=== PATIENT | female | born 1955 | race Asian ===

== ENCOUNTER 2019-07-28 15:31 | Emergency (ER) | payer OTHER ==
[2019-07-28 16:00] VITALS: BP 111/65; PULSE 89; TEMP 97.9; BMI 24.4
--- NOTE | 2019-07-28 16:03 | PDOC ---
Rapid Medical Evaluation Chief Complaint: Pain Time Seen by Provider: 07/28/19 15:52 Medical Evaluation: Allergies Allergy/AdvReac Type Severity Reaction Status Date / Time No Known Allergies Allergy Verified 07/28/19 15:50 07/28/19 15:52 I have performed a brief in-person evaluation of this patient. The patient presents with a chief complaint of: Abdominal and rectal pain w/ blood in urine. Also c/o constipation. Last BM was 3 days ago since skin graft for skin cancer? Pertinent physical exam findings:Pt appears in discomfort from pain I have ordered the following: UA. Ucx, flat and upright abdominal xray The patient will proceed to the ED for further evaluation. Discharge Disposition - Diagnosis Abdominal pain - Referrals - Patient Instructions - Post Discharge Activity
--- NOTE | 2019-07-28 16:43 | PDOC ---
Attending Attestation - Resident Resident Name: RaineyJose martin - HPI HPI: 07/28/19 18:22 Pt presents to the ED complaining of constipation after recent surgery. Patient has a history of melanoma, s/p resection, was discharged from the hospital on oxycodone and miralax. Daugther reports that she has been taking the oxycodone but not the miralax. History of chronic constipation. Patient was also complaining of nausea, vague abdominal discomfort and painless hematuria. Patient took mag citrate and "mineral salt water" at home without success. On arrival to the ED, patient had a large bowel movement. Now, she reports feeling much better, and reports that her abdominal discomfort and nausea are gone. 07/28/19 18:27 - Physicial Exam PE: 07/28/19 18:27 Agree with resident exam. Patient is - Medical Decision Making 07/28/19 18:29 pt presents to the ED complaining of constipation that resolved on arrival to the ED. Also complains of painless hematuria. UA shows no evidence of infection. Will discharge home with instructions to follow up with urology and PCP for urgent cystoscopy/
[2019-07-28 18:21] LABS: EPI CELLS 0.9 /HPF (0-5/HPF); HYALINE CASTS 4 /lpf (0-8); URINE APPEARANCE CLEAR; URINE BACTERIA 1.9 /hpf (NEGATIVE); URINE BILIRUBIN NEGATIVE (NEGATIVE); URINE COLOR YELLOW; URINE GLUCOSE (UA) NEGATIVE (NEGATIVE); URINE KETONE NEGATIVE (NEGATIVE); URINE LEUK ESTERASE NEGATIVE (NEGATIVE); URINE NITRITE NEGATIVE (NEGATIVE); URINE PROTEIN NEGATIVE (NEGATIVE); URINE RBC 169 /hpf (0-4); URINE WBC 3 /hpf (0-5)
--- NOTE | 2019-07-28 18:38 | PDOC ---
History of Present Illness - General Chief Complaint: Pain Stated Complaint: CONSTIPATION Time Seen by Provider: 07/28/19 15:52 History Source: Patient, Family (Daughter arrived at bedside. Pt requested she take over translating from [employer] ([employer]# [id number]) Exam Limitations: Language Barrier - History of Present Illness Initial Comments: HPI: 64 y/o female presenting to [facility] ER complaining of constipation and lower abdominal pain since approx. 9am this morning. Last BM was yesterday; described as small and required straining. Denies observing blood. Denies nausea/ vomiting. Tolerating PO well. Endorses chronic constipation issues. Pt underwent removal of melanoma lesion from right foot last Wednesday. Prescribed Oxycodone and MiraLax. Has "only taken a few" pain pills but has not used the MiraLax. Took Mag Citrate at urging of daughter yesterday with limited success. Pt also reports painless hematuria for the past several days. Denies fevers or chills. Denies h/o of similar. Had urine sample taken at pt's surgical post-op clinic visit but no results obtained. No antibiotics prescribed. During the course of interview, pt had a large BM, which she reported as nonbloody and soft. Social Hx: - Nonsmoker Medical Hx: - HTN Surgical Hx: - x2 Review of Systems: In addition to that documented in the HPI above, the additional ROS was obtained : Constitutional- Denies fevers or chills Head- Denies vision changes ENMT- Denies sore throat CV- Denies chest pain Resp- Denies SOB GI- Denies vomiting or diarrhea - Denies painful urination MSK- Denies recent trauma Skin- Denies new rashes Neuro- Denies new numbness or tingling or weakness Endocrine- Denies polyuria Heme- Denies bleeding or bruising Physical Examination: Constitutional- Well-developed, well-nourished adult female in no acute distress or obvious discomfort. Found semi-fowlers on hospital bed. Answered all questions appropriately and completely. Head- Normocephalic. No obvious external signs of trauma. Cardiovascular / Chest- Regular rate and regular rhythm. No murmur, rubs, clicks , or gallops. Peripheral pulses- radial pulses full. Respiratory- Breathing unlabored. Equal chest rise and fall. Clear to auscultation bilaterally. No stridor, no wheezing, no rhonchi. Gastrointestinal- abdomen is soft, non-tender, non-distended. Recent skin grafting scar in LLQ. Neuro- Alert and oriented x4. Moving all four extremities spontaneously. Skin- Warm, dry, and intact. Psych- Affect- appropriate. Mood- normal. Speech was non-labored, non- pressured. MDM: *Reviewed vital signs, nursing notes, and prior visit documentation (if available). 64 y/o female presenting with constipation and painless hematuria. Afebrile. Vitals unremarkable for hypotension or tachycardia. Physical exam as described above. Pt's constipation and lower abdominal pain resolved with BM without medical intervention. UA revealed hematuria without pyuria, nitrites, or leukocyte esterase. Low suspicion for infection. Will defer further workup to PCP clinic. Discussed importance of close follow up with pt and daughter. Provided copy of results. Answered all questions. Provided return precautions. Pt and daughter expressed verbal understanding and agreement with plan to discharge home. Jose Rainey M.D., PGY2 Emergency Medicine Resident Past History - Past Medical History Allergies/Adverse Reactions: Allergies Allergy/AdvReac Type Severity Reaction Status Date / Time No Known Allergies Allergy Verified 07/28/19 15:50 Cancer: Yes (skin) COPD: No Other medical history: being treated for shingles - Psycho Social/Smoking Cessation Hx Smoking History: Never smoked *Physical Exam - Vital Signs Last Vital Signs Temp Pulse Resp BP Pulse Ox 97.9 F 89 18 111/65 97 07/28/19 15:50 07/28/19 15:50 07/28/19 15:50 07/28/19 15:50 07/28/19 15:50 ED Treatment Course - ADDITIONAL ORDERS Additional order review: Laboratory Results 07/28/19 18:00 Urine Color Yellow Urine Appearance Clear Urine pH 5.0 Ur Specific Ewing 1.023 Urine Protein Negative Urine Glucose (UA) Negative Urine Ketones Negative Urine Blood 3+ H Urine Nitrite Negative Urine Bilirubin Negative Urine Urobilinogen 1.0 Ur Leukocyte Esterase Negative Urine WBC (Auto) 3 Urine RBC (Auto) 169 Urine Casts (Auto) 4 U Epithel Cells (Auto) 0.9 Urine Bacteria (Auto) 1.9 Discharge - Discharge Information Problems reviewed: Yes Clinical Impression/Diagnosis: Abdominal pain Qualifiers: Abdominal location: lower abdomen, unspecified Qualified Code(s): R10.30 - Lower abdominal pain, unspecified Constipation Qualifiers: Constipation type: unspecified constipation type Qualified Code(s): K59.00 - Constipation, unspecified Hematuria Qualifiers: Hematuria type: unspecified type Qualified Code(s): R31.9 - Hematuria, unspecified Condition: Improved Disposition: HOME - Admission No - Follow up/Referral Referrals: Harris Renteria [Primary Care Provider] - - Patient Discharge Instructions Patient Printed Discharge Instructions: DI for Constipation, DI for Prescription Opioid Use Additional Instructions: You were seen today for constipation and blood in urine. Your urine test did not show signs of an infection but did show blood. This is a result you need to discuss with your primary care doctor for further evaluation. The constipation is likely related to your chronic constipation problems and was made worse by taking Oxycodone without taking the MiraLAX. You should start taking this as prescribed by your other doctors. Follow up with your primary care doctor within the next 2-3 days. You will need to call to make an appointment. The number is included in this packet. A copy of todays results are attached to this packet. Take it to the appointment so your doctor can review them. Go to the nearest emergency department if your condition worsens or you feel like you need additional emergency evaluation. Print Language: ECUADOREAN - Post Discharge Activity
== END 2019-07-28 18:46 | disposition home or self-care (01) ==
LOC: JER 15:31
DX: K59.00 Constipation, unspecified (principal); R10.30 Lower abdominal pain, unspecified; I10 Essential (primary) hypertension; R31.9 Hematuria, unspecified; Z85.820 Personal history of malignant melanoma of skin; Z98.890 Other specified postprocedural states
CPT/HCPCS: 81003; 87086; 99282-25

== ENCOUNTER 2021-09-22 09:18 | Emergency (ER) | payer OTHER ==
[2021-09-22 09:56] VITALS: BP 128/61; PULSE 68; TEMP 98.5; BMI 25.7
[2021-09-22] MEDS ORDERED: METOCLOPRAMIDE HCL INJECTION 10 MG/2 ML VIAL IVPUSH ONE (10:14)
[2021-09-22] MEDS ORDERED: ACETAMINOPHEN 1000 MG/100 ML BAG IVPB ONE (10:14)
[2021-09-22] MEDS ORDERED: SODIUM CHLORIDE 0.9% 500 ML INFUS.BAG IV ONE (10:14)
[2021-09-22] MEDS ORDERED: METOCLOPRAMIDE HCL INJECTION 10 MG/2 ML VIAL ONE (10:40)
[2021-09-22] MEDS ORDERED: ACETAMINOPHEN INJECTION 100 ML IVPB ONE (10:40)
[2021-09-22 11:11] LABS: CHLORIDE 107 mmol/L (98-107); SODIUM 139 mmol/L (136-145)
[2021-09-22 11:14] LABS: ANION GAP 2 MMOL/L (8-16); BLOOD UREA NITROGEN 8.7 mg/dL (7-18); CALCIUM 9.1 mg/dL (8.5-10.1); CO2 31 mmol/L (21-32); GLUCOSE,RANDOM 101 mg/dL (74-106)
[2021-09-22 11:15] LABS: ALBUMIN 3.9 g/dl (3.4-5.0)
[2021-09-22 11:17] LABS: SGPT/ALT 29 U/L (13-61)
[2021-09-22 11:18] LABS: CREATININE 0.6 mg/dL (0.55-1.3); SGOT/AST 25 U/L (15-37)
[2021-09-22 11:19] LABS: BILIRUBIN,TOTAL 1.4 mg/dL (0.2-1); TOT PROT 7.6 g/dl (6.4-8.2)
[2021-09-22 11:20] LABS: ALK PHOS 71 U/L (45-117)
[2021-09-22 11:45] LABS: BASO % 1.1 % (0-2.0); EOS % 1.9 % (0-4.5); HEMATOCRIT 40.9 % (32.4-45.2); LYMPH % 31.2 % (8-40); MCH 31.9 pg (25.7-33.7); MCHC 34.2 g/dl (32.0-36.0); MEAN CELL VOLUME 93.1 fl (80-96); MEAN PLT VOLUME 8.6 fl (7.5-11.1); MONO % 5.6 % (3.8-10.2); NEUT % 60.2 % (42.8-82.8); PLATELET COUNT 199 10^3/uL (134-434); RBC 4.39 M/mm3 (3.60-5.2); RDW 13.3 % (11.6-15.6); WHITE BLOOD COUNT 3.8 K/mm3 (4.0-10.0)
== END 2021-09-22 12:35 | disposition home or self-care (01) ==
LOC: JER 09:18
PROC: 3E0333Z Introduction of Anti-inflammatory into Peripheral Vein, Percutaneous Approach (ICD-10-PCS; principal; 2021-09-22)
PROC: 3E033GC Introduction of Other Therapeutic Substance into Peripheral Vein, Percutaneous Approach (ICD-10-PCS; 2021-09-22)
DX: R51.9 Headache, unspecified (principal)
CPT/HCPCS: 36415; 80053; 84484; 85025; 93005; 93010; 99284-25